=== PATIENT | male | born 1950 | race Two or more races ===

== ENCOUNTER 2018-10-21 19:44 | Inpatient (IN) | payer MEDICARE, MEDICAID | END 2018-10-31 15:22 | disposition E | LOC: CICU 2S 19:44 | PROC: 5A1955Z Respiratory Ventilation, Greater than 96 Consecutive Hours (ICD-10-PCS; principal; ~2018-10-21) | DX: A41.9 Sepsis, unspecified organism (principal); J96.00 Acute respiratory failure, unspecified whether with hypoxia or hypercapnia; J15.211 Pneumonia due to Methicillin susceptible Staphylococcus aureus; Z93.0 Tracheostomy status; R65.20 Severe sepsis without septic shock ==